=== PATIENT | male | born 1940 | race Caucasian/White ===

== ENCOUNTER 2017-01-06 10:51 | Emergency (ER) | payer MEDICARE, OTHER ==
--- NOTE | 2017-01-06 11:14 | PHYS DOC ---
Adult General Chief Complaint Chief Complaint: CPR/FULL ARREST HPI HPI Patient is a 76 year old male who presents with cardiac arrest. According to family he's been complaining overnight of shortness of breath and EMS arrived and placed him on oxygen and transferred him from the room to the back of her ambulance where he lost pulses and went unresponsive. He was intubated with an LMA and CPR was initiated by EMS he received 3 doses of epi prior to arrival in the emergency department. Here he was transferred over to the cot CPR was continued he received 2 A of bicarbonate and at least 2 more 1 mg doses of epinephrine and on the third pulse check he had return of pulses. The LMA was removed and he was elevated with a 7.5 ET tube at 23 at the teeth. He is spontaneously breathing but nonresponsive. According to the daughter she states that the oxygen cylinder was empty by EMS when he was transferred from the house to the back of the ambulance. Review of Systems Review of Systems Able to obtain secondary to patient's current condition Physical Exam Physical Exam Constitutional: Well developed, well nourished, in acute distress, HENT: Normocephalic, atraumatic, bilateral external ears normal, oropharynx moist, no oral exudates, nose normal. [] Eyes: conjunctiva normal, no discharge. [] Neck: No stridor noted Cardiovascular: CPR in progress Lungs & Thorax: Bilateral breath sounds diminished at the bases being bagged Abdomen: Soft, no masses, no pulsatile masses. [] Skin: Warm, dry, no erythema, no rash. [] Back: No signs of trauma Extremities: no cyanosis, no clubbing, trace edema bilateral lower extremities Neurologic: Responsive EKG EKG EKG shows irregular rhythm with a heart rate of [address] elevations or concerning T-wave inversions, left axis deviation noted, QTC 4 and 51 ms, as interpreted by me. Radiology/Procedures Radiology/Procedures [address] [address] IMAGING REPORT Signed PATIENT: WILFREDO STAUFFER ACCOUNT: [id number] : 1940 LOCATION: ER AGE: 76 SEX: M EXAM STATUS: PRE ER ORD. PHYSICIAN: CARIDAD FERNANDEZ MD REASON: CARDIAC ARREST PROCEDURE: PORTABLE CHEST 1V Portable chest, 01/06/2017: History: Cardiac arrest, intubation An ET tube is in place with its tip located 6 to 7 cm above the aziza. A right Port-A-Cath extends into the superior vena cava. The heart appears to be within normal limits in size. There are bilateral parahilar infiltrates with poor definition of the underlying pulmonary vascularity. The most prominent infiltrates are present in the right upper lobe. This probably represents pulmonary edema. There is pleural thickening in the left lower chest compatible with a small amount of pleural fluid. No right-sided pleural fluid is seen. There is no evidence of pneumothorax. There is mild gaseous distention of the stomach. IMPRESSION: 1. The ET tube is in satisfactory position. 2. Bilateral pulmonary infiltrates most compatible with pulmonary edema. 3. Small left pleural effusion. 4. Mild gaseous distention of the stomach. DICTATED AND SIGNED BY: MANUELA PETERSON MD DATE: 01/06/17 1112 CC: CARIDAD FERNANDEZ MD ~ Impressions: CODE BLUE with return of pulses History of lung cancer Diabetes Coronary artery disease Course & Med Decision Making Course & Med Decision Making Pertinent Labs and Imaging studies reviewed. (See chart for details) Patient arrived with CPR in progress. He is being bagged with an LMA. ACLS protocol was followed. It was reported he had approximately 20 minutes of CPR in route with an LMA in place in the field. He was transferred over from the [facility] to ours and chest compressions were resumed. Upon arrival to the ER he had bilateral breath sounds and chest compressions was performed with good pulse in his femoral artery. He received 2 A of bicarbonate and 2 additional rounds of epinephrine and had return of pulses. Initially his pupils are 1 mm and sluggish and he had some spontaneous breathing. Code ice was initiated. He maintained blood pressure and heart rate for approximately 20-30 minutes and then his blood pressure started decrease. His heart rate went down to the 30s and received another milligram of epi and Levophed drip was started in addition to dopamine. Dopamine was subsequently switched out for Gee fed. He was given push doses of first said and fentanyl benefit no drip was started. He continued to receive push doses of fentanyl. Family wanted the patient transferred to . was contacted and an accepting physician was obtained[facility] [employer] is here currently packaging the patient up for transport. Please refer to CODE BLUE sheet for list of all medications and times. Pt remains critically ill being transported to pulmonary ICU. I spent approximately 85 minutes working and engaged directly in the patient care providing critical care evaluation this includes but not limited to time spent engaged in work directly related to the individual patients care. I spent time at the bedside, reviewing test results, discussing the case with staff, documenting the medical record and time spent with EMS discussing specific treatment issues when the patient presented and during his evaluation. This includes any discussion and updates with family members and/or patient. Dragon Disclaimer Dragon Disclaimer This electronic medical record was generated, in whole or in part, using a voice recognition dictation system. Intubation Procedure Intub Indication: Cardiac arrest Consent: [] Medications Used: No medications required Procedure: The patient was placed in the sniffing position. Intubation was performed [place] scope 0.5 endotracheal tube. 23 at the teeth. Initial confirmation of placement included confirmed by the lateral breath sounds and no sounds over the stomach in addition to color change. A chest x-ray to verify correct placement of the tube . The patient tolerated the procedure well. Complications: No complications noted Departure Departure: Impression: Primary Impression: Cardiac arrest Disposition: XFER SHT-TRM HOSP Condition: CRITICAL CARIDAD FERNANDEZ MD Jan 06, 2017 11:14
[2017-01-06 11:16] LABS: BASO # 0.1 x10^3/uL (0.0-0.2); BASO % 1 % (0-3); EOS # 0.3 x10^3/uL (0.0-0.7); EOS % 2 % (0-3); HEMOGLOBIN 10.7 g/dL (13.0-17.5); LYMPH # 3.9 x10^3/uL (1.0-4.8); LYMPH % 28 % (24-48); MEAN CORPUSCULAR HEMOGLOBIN 31 pg (25-35); MEAN CORPUSCULAR HGB CONC 31 g/dL (31-37); MEAN CORPUSCULAR VOLUME 101 fL (79-100); MONO # 0.9 x10^3/uL (0.0-1.1); MONO % 6 % (0-9); NEUT # 8.8 x10^3uL (1.8-7.7); NEUT % 63 % (31-73); PLATELET COUNT 239 x10^3/uL (140-400); RED BLOOD COUNT 3.48 x10^6/uL (4.30-5.70); WHITE BLOOD COUNT 13.9 x10^3/uL (4.0-11.0)
--- NOTE | 2017-01-06 11:19 | RAD ---
Portable chest, 01/06/2017: History: Cardiac arrest, intubation An ET tube is in place with its tip located 6 to 7 cm above the aziza. A right Port-A-Cath extends into the superior vena cava. The heart appears to be within normal limits in size. There are bilateral parahilar infiltrates with poor definition of the underlying pulmonary vascularity. The most prominent infiltrates are present in the right upper lobe. This probably represents pulmonary edema. There is pleural thickening in the left lower chest compatible with a small amount of pleural fluid. No right-sided pleural fluid is seen. There is no evidence of pneumothorax. There is mild gaseous distention of the stomach. IMPRESSION: 1. The ET tube is in satisfactory position. 2. Bilateral pulmonary infiltrates most compatible with pulmonary edema. 3. Small left pleural effusion. 4. Mild gaseous distention of the stomach.
[2017-01-06 11:25] LABS: ALBUMIN 2.8 g/dL (3.4-5.0); ALBUMIN/GLOBULIN RATIO 0.8 (1.0-1.7); CALCIUM 8.6 mg/dL (8.5-10.1); CREATININE 1.5 mg/dL (0.7-1.3); GFR 45.3; POTASSIUM 4.6 mmol/L (3.5-5.1); TOTAL BILIRUBIN 0.2 mg/dL (0.2-1.0); TOTAL PROTEIN 6.5 g/dL (6.4-8.2)
[2017-01-06] MEDS: MIDAZOLAM HCL PF 5 MG/5 ML VIAL. IV PRN ×2 (11:45→11:59)
[2017-01-06 11:46] LABS: % BANDS 3 % (0-9); % BASOS 0 % (0-3); % EOS 1 % (0-5); % LYMPHS 32 % (24-48); % METAS 1 % (0-0); % MONOS 5 % (0-10); % MYELOS 1 % (0-0); % SEGS 57 % (35-66); PLATELET CLUMP PRESENT; PLT ESTIMATE ADEQUATE (ADEQUATE)
[2017-01-06] MEDS ORDERED: IPRATRPIUM/ALBUTEROL 0.5/2.5MG 3 ML NEBU. ONE ×2 (11:56→12:00)
[2017-01-06] MEDS ORDERED: DOPamine 400MG/250ML PREMIX 400 MG/250 ML BAG IV ONE (12:00)
[2017-01-06] MEDS ORDERED: SODIUM BICARB ADULT 8.4% 50 MEQ/50 ML DISP.SYRIN. ONE (12:00)
[2017-01-06] MEDS ORDERED: EPINEPHrine SYRINGE 1 MG/10 ML SYRINGE ONE (12:00)
[2017-01-06] MEDS ORDERED: EPINEPHrine 4 MG in IV NORMAL SALINE 250ML 250 ML IV ONE (12:00)
[2017-01-06] MEDS ORDERED: MIDAZOLAM HCL PF 5 MG/5 ML VIAL. ONE (12:00)
[2017-01-06] MEDS ORDERED: MIDAZOLAM 100MG/100ML PREMIX 100 ML IV ONE ×3 (12:15→13:15)
[2017-01-06 13:12] LABS: BILIRUBIN,URINE NEG (NEG); CLARITY,URINE CLOUDY; COLOR,URINE YELLOW; GLUCOSE,URINE 500 mg/dL (NEG)
[2017-01-06 13:13] LABS: AMORPHOUS SEDIMENT,UR PRESENT /HPF; BACTERIA,URINE 0 /HPF (0-FEW); NITRITE,URINE NEG (NEG); OVAL FAT BODIES,URINE PRESENT /HPF; RBC,URINE 20-40 /HPF (0-2); SQUAMOUS EPITHELIAL CELL,UR OCC /LPF; UROBILINOGEN,URINE 0.2 mg/dL (0.2 mg/dL); WBC,URINE RARE /HPF (0-4)
[2017-01-06] MEDS ORDERED: NOREPINEPHRINE BITARTRATE 8 MG in IV NORMAL SALINE 250ML 250 ML IV PRN (13:15)
--- NOTE | 2017-01-06 13:48 | EKG ---
[address] [address] Test Date: 2017-01-06 Test Time: 11:24:39 Pat Name: WILFREDO STAUFFER Department: Room: Gender: M Risk Assessor: ELIEL : 1940 Requested By: CARIDAD FERNANDEZ Order Number: [id number] Reading MD: Chente Bauer MD Measurements Intervals [place] Rate: 66 P: ME: QRS: -36 QRSD: 106 T: 53 QT: 428 QTc: 451 Interpretive Statements SR SUBTLE LATERAL ST SEGMENT DEPRESSION Electronically Signed On 01-11-2017 15:20:50 REPACKER by Chente Bauer MD
[2017-01-06 14:11] LABS: BGAS PH 7.07 (7.35-7.46)
[2017-01-06 14:12] LABS: BGAS PH 7.32 (7.35-7.46)
== END 2017-01-06 12:50 | disposition short-term general hospital (02) ==
LOC: ER 10:51
DX: I46.9 Cardiac arrest, cause unspecified (principal); E11.9 Type 2 diabetes mellitus without complications; I25.10 Atherosclerotic heart disease of native coronary artery without angina pectoris; Z85.118 Personal history of other malignant neoplasm of bronchus and lung
CPT/HCPCS: 31500; 36415; 36600; 71010; 80053; 81001; 82803; 82947; 83605; 84484; 85007; 85025; 92950; 93005; 94002; 94640; 96365; 96375; 99291; 99292; J0171; J1265; J2250; J3010; J7050; J7620